=== PATIENT | female | born 1935 | race Caucasian/White ===

== ENCOUNTER 2018-10-17 19:34 | Inpatient (IN) ==
[2018-10-17 20:51] LABS: Baso # (Auto) 0.1 th/mm3 (0.0-0.2); Baso % (Auto) 0.6 % (0.0-2.0); Eos % (Auto) 0.2 % (0.0-4.0); Hematocrit 38.3 % (35.0-46.0); Hemoglobin 12.6 gm/dL (11.6-15.3); Lymph # (Auto) 1.1 th/mm3 (1.0-4.8); Lymph % (Auto) 8.1 % (9.0-44.0); Mean Corpuscular Hemoglobin 26.8 pg (27.0-34.0); Mean Corpuscular Volume 80.9 fL (80.0-100.0); Mean Platelet Volume 8.1 fL (7.0-11.0); Mono # (Auto) 1.2 th/mm3 (0.0-0.9); Neut # (Auto) 10.7 th/mm3 (1.8-7.7); Neut % (Auto) 82.1 % (16.0-70.0); Platelet Count 302 th/mm3 (150-450); Red Blood Count 4.73 mil/mm3 (4.00-5.30); Red Cell Distribution Width 17.8 % (11.6-17.2)
[2018-10-17 21:01] LABS: Prothrombin Time 10.6 sec (9.8-11.6)
[2018-10-17 21:10] LABS: Albumin 4.2 g/dL (3.4-5.0); Anion Gap 10 meq/L (5-15); Aspartate Aminotransferase 47 U/L (15-37); Blood Urea Nitrogen 17 mg/dL (7-18); Calcium 9.8 mg/dL (8.5-10.1); Carbon Dioxide 26.9 meq/L (21.0-32.0); Chloride 99 meq/L (98-107); Glomerular Filtration Rate 45 mL/min (>89); Glucose,Random 181 mg/dL (74-106); Magnesium 1.5 mg/dL (1.5-2.5); Potassium 3.1 meq/L (3.5-5.1); Sodium 136 meq/L (136-145)
[2018-10-17 21:11] LABS: Alanine Aminotransferase 23 U/L (10-53)
[2018-10-17 21:15] LABS: Alkaline Phosphatase 108 U/L (45-117); Total Protein 7.3 g/dL (6.4-8.2)
[2018-10-17] MEDS ORDERED: Aspirin 325 MG Tablet PO ONE ×2 (21:35→21:36)
--- NOTE | 2018-10-17 21:41 | XR ---
EXAM DATE: 10/17/2018 9:10 PM EST AGE/SEX: 83 years / Female INDICATIONS: Chest pain. Shortness of breath. CLINICAL DATA: This is the patient's initial encounter. Patient reports that signs and symptoms have been present for 4 - 6 days and indicates a pain score of 7/10. MEDICAL/SURGICAL HISTORY: Hypertension. Diabetes mellitus type II. Smoker. None. COMPARISON: [facility] – [place], CHEST 1V SINGLE AP, 09/30/2018. [facility], XR CHEST PA AND LAT, 09/25/2016. [facility], XR CHEST PA AND LAT, 06/22/2015. . FINDINGS: Frontal view of the chest demonstrates the lungs to be symmetrically aerated. Faint 11 mm pulmonary n odule in the lateral right upper lung is stable from 2014. Multiple calcified granuloma measuring 5 m m or less are also stable. No focal infiltrates seen. The heart is normal in size. Both hemidiaphragm s well delineated. CONCLUSION: The lungs are clear. No acute findings. Electronically signed by: Chandana Marquez MD Board Certified Radiologist 10/17/2018 9:40 PM EST
--- NOTE | 2018-10-17 22:28 | CT ---
EXAM DATE: 10/17/2018 10:07 PM EST AGE/SEX: 83 years / Female INDICATIONS: Altered mental status. CLINICAL DATA: This is the patient's initial encounter. Patient reports that signs and symptoms have been present for 1 day and indicates a pain score of 0/10. MEDICAL/SURGICAL HISTORY: Hypothyroidism. Gastroesophageal reflux disease. Hypertension. Asthma. . Bladder surgery. RADIATION DOSE: 56.35 CTDI (mGy) COMPARISON: No prior exams available for comparison. TECHNIQUE: CT of the head without contrast. Using automated exposure control and adjustment of the mA and/or kV according to patient size, radiation dose was kept as low as reasonably achievable to ob tain optimal diagnostic quality images. DICOM format image data is available electronically for revi ew and comparison. FINDINGS: Cerebrum: The ventricles, sulci, and basal cisterns are prominent. Symmetric decreased attenuation in the supratentorial white matter characteristic of ischemic demyelination. No evidence of midline s hift, mass lesion, hemorrhage or acute infarction. No extraaxial fluid collections are seen. Posterior Fossa: The cerebellum and brainstem are intact. The 4th ventricle is midline. The cerebe llopontine angle is unremarkable. Extracranial: The visualized portion of the orbits is intact. Skull: The calvaria is intact. No evidence of skull fracture. CONCLUSION: 1. No acute findings in the brain. 2. Moderate ischemic atrophy. . Electronically signed by: Chandana Marquez MD Board Certified Radiologist 10/17/2018 10:26 PM EST
[2018-10-17] MEDS ORDERED: Heparin Drip 25,000 UNIT/250 ML BAG IV.CONT PRN (22:36)
[2018-10-17] MEDS ORDERED: Acetaminophen 325 MG Tablet PO PRN (22:39)
[2018-10-17] MEDS ORDERED: Bisacodyl 10 MG Supp RECTAL PRN (22:39)
--- NOTE | 2018-10-17 22:39 | CT ---
EXAM DATE: 10/17/2018 10:15 PM EST AGE/SEX: 83 years / Female INDICATIONS: Found on floor, abdominal pain. CLINICAL DATA: This is the patient's initial encounter. Patient reports that signs and symptoms have been present for 1 day and indicates a pain score of 5/10. MEDICAL/SURGICAL HISTORY: Gastroesophageal reflux disease. Hypertension. Hypothyroidism. Ast hma. . Bladder surgery. ORAL CONTRAST: No oral contrast ingested. RADIATION DOSE: 6.64 CTDI (mGy) COMPARISON: [facility], CT ABDOMEN AND PELVIS W/ CONTRAST, 12/10/2016. . TECHNIQUE: Multiple contiguous axial images were obtained through the abdomen and pelvis following b olus infusion of 79 ml Omnipaque 350 (iohexol) nonionic water-soluble contrast as a single exam dos e. No oral contrast ingested. Using automated exposure control and adjustment of the mA and/or kV ac cording to patient size, radiation dose was kept as low as reasonably achievable to obtain optimal di agnostic quality images. DICOM format image data is available electronically for review and comparis on. FINDINGS: Lower Lungs: The visualized lower lungs are clear. Liver: The liver has a homogeneous density without space-occupying lesion. There is no dilation of th e biliary tree. No calcified gallstones. Spleen: Homogeneous density without enlargement. Pancreas: Unremarkable without mass or calcification. There is a 3 mm round low density lesion in th e posterior tail, probably representing a cyst, unchanged from prior CT. Kidneys: Normal in size and shape. No evidence of mass or hydronephrosis. Adrenal Glands: Unremarkable. Aorta: The aorta and proximal iliac vessels are grossly unremarkable without aneurysmal dilation. Bowel/Mesentery: The bowel loops are grossly unremarkable. The cecum and sigmoid colon have a normal configuration. Abdominal Wall: Intact. Retroperitoneum: No evidence of adenopathy in the retrocrural, para-aortic, or deep pelvic regions. Bladder: Contours are smooth. Reproductive Organs: No abnormal masses or calcifications seen. Inguinal: The inguinal region is unremarkable without evidence of adenopathy. Bony Structures: Unremarkable. CONCLUSION: 1. No acute findings. Electronically signed by: Chandana Marquez MD Board Certified Radiologist 10/17/2018 10:37 PM EST
[2018-10-17] MEDS ORDERED: Morphine Inj 4 MG/ML Vial IV.PUSH PRN (22:41)
[2018-10-17] MEDS ORDERED: Naloxone Inj 0.4 MG/ML Vial IV.PUSH PRN (22:41)
--- NOTE | 2018-10-17 22:42 | CT ---
EXAM DATE: 10/17/2018 10:12 PM EST AGE/SEX: 83 years / Female INDICATIONS: Found on floor. Neck pain. CLINICAL DATA: This is the patient's initial encounter. Patient reports that signs and symptoms have been present for 1 day and indicates a pain score of 4/10. MEDICAL/SURGICAL HISTORY: Hypertension. Hypothyroidism. Gastroesophageal reflux disease. Ast hma. . Bladder surgery. RADIATION DOSE: 14.97 CTDI (mGy) COMPARISON: No prior exams available for comparison. TECHNIQUE: Contiguous axial images were obtained using helical multirow detector technique. The vol umetric data was post-processed with multiplanar reconstruction in oblique axial, sagittal, and coron al planes. Using automated exposure control and adjustment of the mA and/or kV according to patient s ize, radiation dose was kept as low as reasonably achievable to obtain optimal diagnostic quality sheela ges. DICOM format image data is available electronically for review and comparison. FINDINGS: Diffuse osteopenia. Reversal of the cervical lordosis without spondylolisthesis and with preservation of vertebral body height. Moderate severity discogenic degenerative changes are present C4-T1 with i nterspace narrowing and prominent anterior posterior osteophytes. Posterior elements are in normal al ignment without evidence of locked or perched facets. Moderate severity degenerative changes are pres ent in the facet joints seen one through C4. C2-3: No fracture seen. The neural foramina are patent. C3-4: No fracture seen. The neural foramina are patent. C4-5: No fracture seen. The neural foramina are patent. C5-6: No fracture seen. The neural foramina are patent. C6-7: No fracture seen. The neural foramina are patent. C7-T1: No fracture seen. The neural foramina are patent. CONCLUSION: 1. No evidence of fracture or spondylolisthesis. 2. Multilevel discogenic degenerative changes with associated reversal of the upper cervical lordosi s. Electronically signed by: Chandana Marquez MD Board Certified Radiologist 10/17/2018 10:40 PM EST
--- NOTE | 2018-10-17 22:46 | P.HPIM ---
History of Present Illness Primary Care Physician: No Primary Care Physician History of Present Illness: This is an 83-year-old female with PMH of HTN, Hyperlipidemia, Hypothyroidism and Asthma who was brought to the ER by EMS after being found down by Daughter. Pt unable to provide much history, does not know how she fell or if she had LOC. +Lives alone. No significant complaints at this time. Per Daughter, pt now confused which is not baseline. On arrival, BP 168/79, HR 70, O2 sat 97% on RA, Afebrile. WBC 13. K+ 3.1. Creatinine 1.15, no previous labs for comparison. Troponin [address] Head with no acute findings. CT C-spine negative for fracture. CT Abdomen/Pelvis no acute findings. CXR negative. Currently on Heparin gtt. Diagnosis (1) Syncope: (2) HTN (hypertension): (3) NSTEMI (non-ST elevated myocardial infarction): (4) Encephalopathy: (5) Hypokalemia: (6) JASWANT (acute kidney injury): Review of Systems PAST FAMILY HISTORY: Reviewed. No h/o DM or CAD Review of Systems: all other systems reviewed are negative [facility] Medical History Medical History Asthma (Acute) GERD (gastroesophageal reflux disease) (Acute) High cholesterol (Acute) Hypertension (Acute) Hypothyroid (Acute) Surgical History Surgical History History of bladder surgery (Acute) Social History Social History Substance History: No History of Abuse Second Hand Smoke Exposure: No Smoking Status: Current every day smoker Tobacco Type: Cigarettes How Often Do You Have a Drink Containing Alcohol: Never Recent Out of Country Travel within the Last 8 Weeks: No Immunization History Tetanus Immunization: Unsure Medications and Allergies Allergies Allergy/AdvReac Type Severity Reaction Status Date / Time alendronate sodium Allergy Dizziness Verified 10/17/18 20:15 [From Fosamax] benazepril Allergy Fatigue Verified 10/17/18 20:15 ciprofloxacin [From Cipro] Allergy Dizziness Verified 10/17/18 20:15 Home Medications Medication Instructions Recorded Confirmed Type albuterol sulfate [Ventolin HFA] 2 puff INHALATION Q4-6H PRN 09/30/18 10/17/18 History ascorbic acid (vitamin C) [Vitamin 500 mg PO DAILY 09/30/18 10/17/18 History C] calcium carbonate [Calcium 600] 600 mg PO BID 09/30/18 10/17/18 History cholecalciferol (vitamin D3) 5,000 unit PO DAILY 09/30/18 10/17/18 History [Vitamin D3] cyanocobalamin (vitamin B-12) 500 mcg PO DAILY 09/30/18 10/17/18 History [Vitamin B-12] dorzolamide-timolol 1 drp OPHTHALMIC (EYE) BID 09/30/18 10/17/18 History gabapentin 300 mg PO DAILY 09/30/18 10/17/18 History hydrochlorothiazide 12.5 mg PO DAILY 09/30/18 10/17/18 History levothyroxine 75 mcg PO DAILY 09/30/18 10/17/18 History melatonin 1 mg PO HS PRN 09/30/18 10/17/18 History omeprazole 20 mg PO DAILY 09/30/18 10/17/18 History pravastatin 20 mg PO DAILY 09/30/18 10/17/18 History baclofen 10 mg PO BID 10/17/18 10/17/18 History ranitidine HCl 150 mg PO DAILY 10/17/18 10/17/18 History Active Medications: Active Medications Acetaminophen (Tylenol) 650 mg PO Q4H PRN PRN Reason: Temp > 100.4 Hydrocodone Bitart/Acetaminophen (Bryan 5/325) 1 tab PO Q4H PRN PRN Reason: PAIN SCALE 3 TO 5 Al Hydroxide/Mg Hydroxide (Milk Of Magnesia Liq) 30 ml PO Q12H PRN PRN Reason: Mild Constipation Aspirin (Ecotrin) 81 mg PO DAILY ROBERTO Bisacodyl (Dulcolax Supp) 10 mg RECTAL DAILY PRN PRN Reason: SEVERE CONSITIPATION Heparin Sodium/Dextrose (Heparin/D5w 25,000 U/250 Ml) 25,000 unit in 250 mls @ 0 mls/hr IV.CONT TITRATE PRN; Protocol PRN Reason: Per Protocol Sodium Chloride (Ns Inj) 1,000 mls @ 100 mls/hr IV.CONT .Q10H ROBERTO Lactulose (Lactulose Liq) 30 ml PO DAILY PRN PRN Reason: SEVERE CONSITIPATION Morphine Sulfate (Morphine Inj) 2 mg IV.PUSH Q3H PRN PRN Reason: PAIN 6-10;IF UNABLE TO TAKE PO Naloxone HCl (Narcan Inj) 0.4 mg IV.PUSH UNSCH PRN PRN Reason: SEE LABEL COMMENTS Nitroglycerin (Nitro-Bid 2% Oint) 0.5 inch TOPICAL Q6HR PRN PRN Reason: Chest Pain Ondansetron HCl (Zofran Inj) 4 mg IV.PUSH Q6H PRN PRN Reason: NAUSEA OR VOMITING Pravastatin Sodium (Pravachol) 40 mg PO DAILY ROBERTO Senna/Docusate Sodium (Divya-Colace) 1 tab PO BID ORBERTO Sennosides (Senokot) 17.2 mg PO Q12H PRN PRN Reason: Moderate Constipation Sodium Chloride (Ns Flush) 2 ml IV.FLUSH BID ROBERTO Sodium Chloride (Ns Flush) 2 ml IV.FLUSH PRN PRN PRN Reason: FLUSH AFTER USING IV ACCESS Physical Exam Vital signs: Vital Signs 10/17/18 19:44 10/17/18 20:18 10/17/18 20:33 Temperature 98.5 F Pulse Rate 123 H 117 H Respiratory Rate 16 18 Blood Pressure 126/75 202/86 H Pulse Oximetry 96 100 98 Intake & Output 10/17/18 10/17/18 10/18/18 06:59 18:59 06:59 Weight 52.163 kg Narrative: PE: GENERAL: Pleasant elderly white female in no acute distress. SKIN: Focused skin assessment warm and dry. HEENT: PERRLA, EOMI. No scleral icterus or conjunctival pallor. No lid lag or facial droop. CARDIOVASCULAR: Regular rate and rhythm. No obvious murmurs to auscultation. No chest tenderness to palpation. RESPIRATORY: No obvious rhonchi or wheezing. Clear to auscultation. Breath sounds equal bilaterally. GASTROINTESTINAL: Abdomen soft, non-tender, nondistended. BS normal. MUSCULOSKELETAL: Extremities without clubbing, cyanosis, or edema. No obvious deformities. NEUROLOGICAL: Awake, alert, oriented to person/place. No focal neurologic deficits. Moving both upper and lower extremities spontaneously. PSYCHIATRIC: Appropriate mood and affect. Insight and judgment normal. Results Labs CBC & Chem 7: 10/17/18 20:41 10/17/18 20:41 Imaging Impressions Chest X-Ray 10/17/18 20:29 CONCLUSION: The lungs are clear. No acute findings. Head CT 10/17/18 20:29 CONCLUSION: 1. No acute findings in the brain. 2. Moderate ischemic atrophy. . Abdomen/Pelvis CT 10/17/18 20:39 CONCLUSION: 1. No acute findings. Cervical Spine CT 10/17/18 21:39 CONCLUSION: 1. No evidence of fracture or spondylolisthesis. 2. Multilevel discogenic degenerative changes with associated reversal of the upper cervical lordosis. Caprini VTE Risk Assessment Caprini VTE Risk Assessment: No/Low Risk (score <= 1) Caprini Risk Assessment Model: Point Value = 1 Point Value = 2 Point Value = 3 Point Value = 5 Age 41-60 Minor surgery BMI > 25 kg/m2 Swollen legs Varicose veins or History of unexplained or recurrent spontaneous Oral contraceptives or hormone replacement Sepsis (< 1 month) Serious lung disease, including pneumonia (< 1 month) Abnormal pulmonary function Acute myocardial infarction Congestive heart failure (< 1 month) History of inflammatory bowel disease Medical patient at bed rest Age 61-74 Arthroscopic surgery Major open surgery (> 45 min) Laparoscopic surgery (> 45 min) Malignancy Confined to bed (> 72 hours) Immobilizing plaster cast Central venous access Age >= 75 History of VTE Family history of VTE Factor V Leiden Prothrombin [id number] Lupus anticoagulant Anticardiolipin antibodies Elevated serum homocysteine Heparin-induced thrombocytopenia Other congenital or acquired thrombophilia Stroke (< 1 month) Elective arthroplasty Hip, pelvis, or leg fracture Acute spinal cord injury (< 1 month) Prophylaxis Regimen: Total Risk Factor Score Risk Level Prophylaxis Regimen 0-1 Low Early ambulation 2 Moderate Order ONE of the following: *Sequential Compression Device (SCD) *Heparin 5000 units SQ BID 3-4 Higher Order ONE of the following medications: *Heparin 5000 units SQ TID *Enoxaparin/Lovenox 40 mg SQ daily (WT < 150 kg, CrCl > 30 mL/min) *Enoxaparin/Lovenox 30 mg SQ daily (WT < 150 kg, CrCl > 10-29 mL/min) *Enoxaparin/Lovenox 30 mg SQ BID (WT < 150 kg, CrCl > 30 mL/min) AND/OR *Sequential Compression Device (SCD) 5 or more Highest Order ONE of the following medications: *Heparin 5000 units SQ TID (Preferred with Epidurals) *Enoxaparin/Lovenox 40 mg SQ daily (WT < 150 kg, CrCl > 30 mL/min) *Enoxaparin/Lovenox 30 mg SQ daily (WT < 150 kg, CrCl > 10-29 mL/min) *Enoxaparin/Lovenox 30 mg SQ BID (WT < 150 kg, CrCl > 30 mL/min) AND *Sequential Compression Device (SCD) Assessment and Plan (1) Syncope: Code(s): R55 - Syncope and collapse Status: Acute (2) HTN (hypertension): Code(s): I10 - Essential (primary) hypertension Status: Acute (3) NSTEMI (non-ST elevated myocardial infarction): Code(s): I21.4 - Non-ST elevation (NSTEMI) myocardial infarction Status: Acute (4) Encephalopathy: Code(s): G93.40 - Encephalopathy, unspecified Status: Acute (5) Hypokalemia: Code(s): E87.6 - Hypokalemia Status: Acute (6) JASWANT (acute kidney injury): Code(s): N17.9 - Acute kidney failure, unspecified Status: Acute Plan A/P: 1. Syncope: Presumed, found on ground by Daughter, pt w/ no recollection of events, presumed syncopal event. CT Head/C-Spine w/ no acute findings. Telemetry, check Echo to eval for valvular abnormality/cardiomyopathy. 2. NSTEMI: Trop 0.30, no c/o chest pain, no acute EKG changes, currently on Heparin gtt, continue Heparin, ASA, Statin, check serial cardiac enzymes, Consult Cardiology for further eval/intervention. 3. Encephalopathy: Daughter notes increased confusion, not baseline, BP significantly elevated, possibly Hypertensive Encephalopathy, check U/a to eval for underlying UTI. 4. JASWANT: Creatinine 1.15, no previous labs for comparison, IVF for hydration, check U/a as above, repeat labs in am. 5. HTN: Uncontrolled, BP 200's while in ER, now down to 160's, monitor BP, antihypertensives as needed for BP >180 6. DVT Prophylaxis: Heparin gtt 7. Social work for d/c planning as needed. 8. Case discussed w/ ER physician at length, labs/records/imaging reviewed by me. _ (1) Syncope Qualifiers: Encounter type: Syncope type: unspecified Qualified Code(s): R55 - Syncope and collapse
--- NOTE | 2018-10-17 23:24 | ED ---
HPI General Chief Complaint: Fall Stated Complaint: fall Time Seen by Provider: 10/17/18 20:11 Source: patient and family Mode of arrival: ambulatory Limitations: altered mental status History of Present Illness HPI Narrative: 83 yo female here for evaluation of fall and possible confusion. Per daughter found on the floor today. Unknown how long. Per patient two days but daughter concerned as she appears to be confused which is new for her. Patient lives alone. Only complain is of back pain and left sided abdominal pain on epigastric area. Pain is 8/10. No cardiac history. No CVA history. Patient evaluated here a few weeks ago for fall. Patient able to provide information but does appear to be confused at times and per daughter this is what concerns here. Patient was not able to get off the floor. No reported urine or BM incontinence on scene. No blood thinner use. No leg or arm pain. Denies weakness, tingling or nubmness. Related Data Home Medications Medication Instructions Recorded Confirmed albuterol sulfate [Ventolin HFA] 2 puff INHALATION Q4-6H PRN 09/30/18 10/17/18 ascorbic acid (vitamin C) [Vitamin 500 mg PO DAILY 09/30/18 10/17/18 C] calcium carbonate [Calcium 600] 600 mg PO BID 09/30/18 10/17/18 cholecalciferol (vitamin D3) 5,000 unit PO DAILY 09/30/18 10/17/18 [Vitamin D3] cyanocobalamin (vitamin B-12) 500 mcg PO DAILY 09/30/18 10/17/18 [Vitamin B-12] dorzolamide-timolol 1 drp OPHTHALMIC (EYE) BID 09/30/18 10/17/18 gabapentin 300 mg PO DAILY 09/30/18 10/17/18 hydrochlorothiazide 12.5 mg PO DAILY 09/30/18 10/17/18 levothyroxine 75 mcg PO DAILY 09/30/18 10/17/18 melatonin 1 mg PO HS PRN 09/30/18 10/17/18 omeprazole 20 mg PO DAILY 09/30/18 10/17/18 pravastatin 20 mg PO DAILY 09/30/18 10/17/18 baclofen 10 mg PO BID 10/17/18 10/17/18 ranitidine HCl 150 mg PO DAILY 10/17/18 10/17/18 Allergies Allergy/AdvReac Type Severity Reaction Status Date / Time alendronate sodium Allergy Dizziness Verified 10/17/18 20:15 [From Fosamax] benazepril Allergy Fatigue Verified 10/17/18 20:15 ciprofloxacin [From Cipro] Allergy Dizziness Verified 10/17/18 20:15 Review of Systems ROS: all other systems reviewed are negative [facility] Medical History Medical History Asthma (Acute) GERD (gastroesophageal reflux disease) (Acute) High cholesterol (Acute) Hypertension (Acute) Hypothyroid (Acute) Surgical History Surgical History History of bladder surgery (Acute) Social History Social History Substance History: No History of Abuse Second Hand Smoke Exposure: Yes Smoking Status: Current every day smoker Tobacco Type: Cigarettes How Often Do You Have a Drink Containing Alcohol: Never Recent Out of Country Travel within the Last 8 Weeks: No Immunization History Tetanus Immunization: Unsure Exam Narrative Exam Narrative: GENERAL: Well appearing. Anorexic SKIN: Warm and dry. HEAD: Atraumatic. Normocephalic. EYES: Pupils equal and round. No scleral icterus. No injection or drainage. ENT: No nasal bleeding or discharge. Mucous membranes pink and moist. Tongue is midline. No uvula deviation. NECK: Trachea midline. No JVD. CARDIOVASCULAR: Tachycardic rate and rhythm. RESPIRATORY: No accessory muscle use. Clear to auscultation. Breath sounds equal bilaterally. GASTROINTESTINAL: Abdomen soft, non-tender, nondistended. Hepatic and splenic margins not palpable. MUSCULOSKELETAL: Extremities without clubbing, cyanosis, or edema. No obvious deformities. Full ROM of the upper and lower extremities bilaterally. 2+ pulses. No lumbar, thoracic, cervical spine tenderness to plapation. Reproducible pain in left epigastric area and rib area. NEUROLOGICAL: Awake and alert. No obvious cranial nerve deficits. Motor grossly within normal limits. Five out of 5 muscle strength in the arms and legs. Normal speech. PSYCHIATRIC: Appropriate mood and affect; insight and judgment normal. Course Initial Documented Vital Signs Temperature 98.5 F 10/17/18 19:44 Pulse Rate 123 H 10/17/18 19:44 Respiratory Rate 16 10/17/18 19:44 Blood Pressure 126/75 10/17/18 19:44 Pulse Oximetry 96 10/17/18 19:44 Last Documented Vital Signs Temperature 98.6 F 10/18/18 00:15 Pulse Rate 94 H 10/18/18 02:00 Respiratory Rate 16 10/18/18 00:15 Blood Pressure 159/87 H 10/18/18 00:15 Pulse Oximetry 98 10/18/18 00:15 Medical Decision Making MARION Attestation MARION supervised visit: Yes Attestation: I, Dr. Vasquez, have reviewed the advance practice practitioner's documentation and am in agreement, met with the patient face to face, made the diagnosis, and the medical decision making was done by me. *My assessment and Findings: NSTEMI. FALL 4. MDM Narrative Medical decision making narrative: 83 yo female here for fall and confusion. Labs and imaging ordered. Labs and imaging positive for positive troponin. Aspirin and nitro paste given. Discussed with Dr Vasquez who recommends admission and Heparin drip. Discussed with Dr Mcgregor who agrees to admit. Family and patient understand reasons for admission and need for further management. Medical Screen Exam Complete: Yes Emergency Medical Condition: Yes Differential Diagnosis Differential Diagnosis: CVA vs ACS vs chest pain vs syncope vs head injury Medical Records Medical records reviewed: Yes I reviewed the patient's medical records. Lab Data Lab results reviewed: Yes I reviewed the patient's lab results. Result diagrams: 10/17/18 20:41 10/17/18 20:41 Lab Results 10/17/18 10/17/18 10/17/18 Range/Units 20:41 20:41 20:41 WBC 13.0 H (4.0-11.0) th/mm3 RBC 4.73 (4.00-5.30) mil/mm3 Hgb 12.6 (11.6-15.3) gm/dL Hct 38.3 (35.0-46.0) % MCV 80.9 (80.0-100.0) fL MCH 26.8 L (27.0-34.0) pg MCHC 33.0 (32.0-36.0) % RDW 17.8 H (11.6-17.2) % Plt Count 302 (150-450) th/mm3 MPV 8.1 (7.0-11.0) fL Neut % (Auto) 82.1 H (16.0-70.0) % Lymph % (Auto) 8.1 L (9.0-44.0) % [place] % (Auto) 9.0 H (0.0-8.0) % Eos % (Auto) 0.2 (0.0-4.0) % Baso % (Auto) 0.6 (0.0-2.0) % Neut # (Auto) 10.7 H (1.8-7.7) th/mm3 Lymph # (Auto) 1.1 (1.0-4.8) th/mm3 [place] # (Auto) 1.2 H (0.0-0.9) th/mm3 Eos # (Auto) 0.0 (0.0-0.4) th/mm3 Baso # (Auto) 0.1 (0.0-0.2) th/mm3 WBC Differential . Differential Comment Auto diff final PT 10.6 (9.8-11.6) sec INR 1.0 Ratio APTT (23.4-31.7) sec Sodium (136-145) meq/L Potassium (3.5-5.1) meq/L Chloride (98-107) meq/L Carbon Dioxide (21.0-32.0) meq/L Anion Gap (5-15) meq/L BUN (7-18) mg/dL Creatinine (0.50-1.00) mg/dL Estimated GFR (>89) mL/min Random Glucose (74-106) mg/dL Calcium (8.5-10.1) mg/dL Magnesium (1.5-2.5) mg/dL Total Bilirubin (0.2-1.0) mg/dL AST (15-37) U/L ALT (10-53) U/L Alkaline Phosphatase (45-117) U/L Total Creatine Kinase 1635 H (26-192) U/L CK-MB (CK-2) 25.1 H (0.5-3.6) ng/mL CK-MB (CK-2) % 1.5 (0.0-4.0) % Troponin I (0.02-0.05) ng/mL Total Protein (6.4-8.2) g/dL Albumin (3.4-5.0) g/dL TSH 1.750 (0.358-3.740) uIU/mL 10/17/18 10/17/18 Range/Units 20:41 22:50 WBC (4.0-11.0) th/mm3 RBC (4.00-5.30) mil/mm3 Hgb (11.6-15.3) gm/dL Hct (35.0-46.0) % MCV (80.0-100.0) fL MCH (27.0-34.0) pg MCHC (32.0-36.0) % RDW (11.6-17.2) % Plt Count (150-450) th/mm3 MPV (7.0-11.0) fL Neut % (Auto) (16.0-70.0) % Lymph % (Auto) (9.0-44.0) % [place] % (Auto) (0.0-8.0) % Eos % (Auto) (0.0-4.0) % Baso % (Auto) (0.0-2.0) % Neut # (Auto) (1.8-7.7) th/mm3 Lymph # (Auto) (1.0-4.8) th/mm3 [place] # (Auto) (0.0-0.9) th/mm3 Eos # (Auto) (0.0-0.4) th/mm3 Baso # (Auto) (0.0-0.2) th/mm3 WBC Differential Differential Comment PT 10.8 (9.8-11.6) sec INR 1.1 Ratio APTT 26.4 (23.4-31.7) sec Sodium 136 (136-145) meq/L Potassium 3.1 L (3.5-5.1) meq/L Chloride 99 (98-107) meq/L Carbon Dioxide 26.9 (21.0-32.0) meq/L Anion Gap 10 (5-15) meq/L BUN 17 (7-18) mg/dL Creatinine 1.15 H (0.50-1.00) mg/dL Estimated GFR 45 L (>89) mL/min Random Glucose 181 H (74-106) mg/dL Calcium 9.8 (8.5-10.1) mg/dL Magnesium 1.5 (1.5-2.5) mg/dL Total Bilirubin 1.0 (0.2-1.0) mg/dL AST 47 H (15-37) U/L ALT 23 (10-53) U/L Alkaline Phosphatase 108 (45-117) U/L Total Creatine Kinase (26-192) U/L CK-MB (CK-2) (0.5-3.6) ng/mL CK-MB (CK-2) % (0.0-4.0) % Troponin I 0.30 H (0.02-0.05) ng/mL Total Protein 7.3 (6.4-8.2) g/dL Albumin 4.2 (3.4-5.0) g/dL TSH (0.358-3.740) uIU/mL Imaging Data Attestation: I personally reviewed and interpreted this imaging study as follows : Radiologist's impression: Chest X-Ray 10/17/18 20:29 CONCLUSION: The lungs are clear. No acute findings. Head CT 10/17/18 20:29 CONCLUSION: 1. No acute findings in the brain. 2. Moderate ischemic atrophy. . Abdomen/Pelvis CT 10/17/18 20:39 CONCLUSION: 1. No acute findings. Cervical Spine CT 10/17/18 21:39 CONCLUSION: 1. No evidence of fracture or spondylolisthesis. 2. Multilevel discogenic degenerative changes with associated reversal of the upper cervical lordosis. ECG Data Attestation: I personally reviewed and interpreted this ECG as follows: Interpretation: EKG shows sinus tachycardia but no sign of ST elevation or depression read by my attending and myself. Discharge Plan Discharge Disposition Patient Disposition: ED Admit(ED Internal Use Only) Discharge Order Discharge Orders: ED Use Only Admit Order (Routine); Ordered 10/17/18 Ordered By: Prince Marr Discharge Details Diagnosis: Syncope, Non-ST elevation [place] (NSTEMI) Physicians Team ED Provider: Josué Vasquez ED Midlevel Provider: Prince Marr Primary Care Provider: Primary Care Physici,No Attending Provider: Analilia Mcgregor Other Providers: Fan Rayo ; [employer] Status ED Status: Left Department Discharge Information Discharge Date/Time: 10/18/18 00:24
[2018-10-17] MEDS ORDERED: Metoprolol Inj 5 MG/5 ML Vial IV.PUSH ONE (23:45)
[2018-10-17 23:56] LABS: Activated Partial Thrombo Time 26.4 sec (23.4-31.7); INR 1.1 Ratio; Prothrombin Time 10.8 sec (9.8-11.6)
[2018-10-17] MEDS: Sod Chloride 0.9% Inj 1,000 ML IV.CONT SCH (23:56)
[2018-10-18 01:50] LABS: Thyroid Stimulating Hormone 1.75 uIU/mL (0.358-3.740)
[2018-10-18 02:02] LABS: CKMB Percent 1.5 % (0.0-4.0); Creatine Kinase MB 25.1 ng/mL (0.5-3.6)
--- NOTE | 2018-10-18 06:09 | P.PNIM ---
Subjective Interval history: F/u rhabdomyolysis, HTN and encephalopathy. Complaining of soreness from head to toe. Patient reports she was on the floor for 2 days. History of fall 2 weeks ago and was placed on baclofen which cause dizziness and confusion. Denies chest pain. Seen with daughter who reports that confusion is better Physical Exam Vital signs: Vital Signs 10/17/18 19:44 10/17/18 20:18 10/17/18 20:33 Temperature 98.5 F Pulse Rate 123 H 117 H Respiratory Rate 16 18 Blood Pressure 126/75 202/86 H Pulse Oximetry 96 100 98 10/17/18 23:51 10/18/18 00:15 10/18/18 01:00 Temperature 98.6 F Pulse Rate 110 H 109 H 102 H Respiratory Rate 16 16 Blood Pressure 168/87 H 159/87 H Pulse Oximetry 97 98 10/18/18 02:00 10/18/18 03:00 10/18/18 04:00 Temperature Pulse Rate 94 H 94 H 89 Respiratory Rate 16 Blood Pressure 137/81 Pulse Oximetry 98 Intake & Output 10/17/18 10/17/18 10/18/18 06:59 18:59 06:59 Weight 52.163 kg Narrative: GENERAL: Pleasant elderly white female in no acute distress. SKIN: Focused skin assessment warm and dry. CARDIOVASCULAR: Regular rate and rhythm. No obvious murmurs to auscultation. No chest tenderness to palpation. RESPIRATORY: No obvious rhonchi or wheezing. Clear to auscultation. Breath sounds equal bilaterally. GASTROINTESTINAL: Abdomen soft, non-tender, nondistended. BS normal. MUSCULOSKELETAL: Extremities without clubbing, cyanosis, or edema. No obvious deformities. NEUROLOGICAL: Awake, alert, oriented to person/place. No focal neurologic deficits. Moving both upper and lower extremities spontaneously. PSYCHIATRIC: Appropriate mood and affect. Insight and judgment normal. Results Labs CBC & Chem 7: 10/18/18 08:20 10/18/18 08:20 Imaging Imaging: Impressions Chest X-Ray 10/17/18 20:29 CONCLUSION: The lungs are clear. No acute findings. Head CT 10/17/18 20:29 CONCLUSION: 1. No acute findings in the brain. 2. Moderate ischemic atrophy. . Abdomen/Pelvis CT 10/17/18 20:39 CONCLUSION: 1. No acute findings. Cervical Spine CT 10/17/18 21:39 CONCLUSION: 1. No evidence of fracture or spondylolisthesis. 2. Multilevel discogenic degenerative changes with associated reversal of the upper cervical lordosis. Procedures Procedures: none Assessment and Plan (1) Syncope: Code(s): R55 - Syncope and collapse Status: Acute (2) HTN (hypertension): Code(s): I10 - Essential (primary) hypertension Status: Acute (3) NSTEMI (non-ST elevated myocardial infarction): Code(s): I21.4 - Non-ST elevation (NSTEMI) myocardial infarction Status: Acute (4) Encephalopathy: Code(s): G93.40 - Encephalopathy, unspecified Status: Acute (5) Hypokalemia: Code(s): E87.6 - Hypokalemia Status: Acute (6) JASWANT (acute kidney injury): Code(s): N17.9 - Acute kidney failure, unspecified Status: Acute Plan 1. Syncope: Presumed, found on ground by Daughter, pt w/ no recollection of events, presumed syncopal event. CT Head/C-Spine w/ no acute findings. Telemetry, check Echo to eval for valvular abnormality/cardiomyopathy. 2. NSTEMI type 2: Trop 0.30, no c/o chest pain, no acute EKG changes, continue ASA, Statin and follow-up cardiology consult. Discontinue heparin drip 3. Encephalopathy, multifactorial (uncontrolled hypertension and medication): Daughter notes increased confusion, not baseline, BP significantly elevated, possibly Hypertensive Encephalopathy, check U/a to eval for underlying UTI. Monitor leukocytosis. Discontinue baclofen. Obtain EEG and MRI 4. JASWANT: Creatinine 1.15, no previous labs for comparison, IVF for hydration, check U/a as above, repeat labs in am. 5. HTN: Uncontrolled, BP 200's while in ER, now down to 160's, monitor BP, antihypertensives as needed for BP >180. Improving 6. Rhabdo. Continue IV hydration follow-up pending CPK and monitor renal function. If worse consider stopping statin 7. Hypokalemia and hypophosphatemia. Aggressive replacement. DVT Prophylaxis: SCD and early ambulation Progress Note: Quality VTE Deep Vein Thrombosis/Pulmonary Embolism Present on Admission: No _ (1) Syncope Qualifiers: Encounter type: Syncope type: unspecified Qualified Code(s): R55 - Syncope and collapse
[2018-10-18] MEDS: Levothyroxine 75 MCG Tablet PO SCH (06:39)
[2018-10-18] MEDS: Sod Chloride 0.9% Inj 1,000 ML IV.CONT SCH ×2 (07:52→22:57)
[2018-10-18] MEDS: Senna/Docusate Sodium 8.6/50 MG Tablet PO SCH ×2 (08:00→20:02)
[2018-10-18] MEDS: Pantoprazole Sodium 20 MG DR Tablet PO SCH (08:00)
[2018-10-18 08:43] LABS: Baso # (Auto) 0.1 th/mm3 (0.0-0.2); Baso % (Auto) 0.7 % (0.0-2.0); Eos # (Auto) 0.1 th/mm3 (0.0-0.4); Eos % (Auto) 0.5 % (0.0-4.0); Hematocrit 37.8 % (35.0-46.0); Hemoglobin 12.1 gm/dL (11.6-15.3); Lymph # (Auto) 1.5 th/mm3 (1.0-4.8); Mean Corpuscular HGB Conc 31.9 % (32.0-36.0); Mean Corpuscular Hemoglobin 26.3 pg (27.0-34.0); Mean Corpuscular Volume 82.4 fL (80.0-100.0); Mean Platelet Volume 7.6 fL (7.0-11.0); Mono # (Auto) 1.1 th/mm3 (0.0-0.9); Mono % (Auto) 11.1 % (0.0-8.0); Neut # (Auto) 7.1 th/mm3 (1.8-7.7); Neut % (Auto) 72.7 % (16.0-70.0); Platelet Count 254 th/mm3 (150-450); Red Blood Count 4.59 mil/mm3 (4.00-5.30); Red Cell Distribution Width 17.6 % (11.6-17.2); White Blood Count 9.7 th/mm3 (4.0-11.0)
[2018-10-18] MEDS ORDERED: Dorzolamide-Timolol 2/0.5% Opth Drops 10 ML Bottle EACH EYE SCH (09:00)
[2018-10-18 09:17] LABS: Alanine Aminotransferase 24 U/L (10-53); Albumin 3.7 g/dL (3.4-5.0); Alkaline Phosphatase 99 U/L (45-117); Anion Gap 9 meq/L (5-15); Aspartate Aminotransferase 45 U/L (15-37); Blood Urea Nitrogen 15 mg/dL (7-18); Calcium 8.8 mg/dL (8.5-10.1); Carbon Dioxide 25.4 meq/L (21.0-32.0); Chloride 101 meq/L (98-107); Chol/HDL Ratio 1.83 Ratio; Cholesterol 184 mg/dL (120-200); Glomerular Filtration Rate 72 mL/min (>89); Glucose,Random 103 mg/dL (74-106); HDL Cholesterol 100.1 mg/dL (40.0-60.0); LDL Cholesterol,Calculated 68 mg/dL (0-99); Sodium 135 meq/L (136-145); Total Protein 6.4 g/dL (6.4-8.2); Triglycerides 79 mg/dL (42-150)
[2018-10-18 10:32] LABS: Phosphorus 2.2 mg/dL (2.5-4.9)
[2018-10-18] MEDS: Timolol 0.5% Drops 5 ML Bottle EACH EYE SCH ×2 (11:07→20:02)
[2018-10-18] MEDS: Dorzolamide 2% Opth Drops 10 ML Bottle EACH EYE SCH ×2 (11:10→20:02)
--- NOTE | 2018-10-18 11:22 | ECG ---
Date Performed: 10/17/2018 Time Performed: 20:27:00 PTAGE: 83 years EKG: SINUS TACHYCARDIA WITH OCCASIONAL VENTRICULAR PREMATURE COMPLEXES POSSIBLE RIGHT ATRIAL ENL ARGEMENT LEFT ATRIAL ENLARGEMENT POSSIBLE RIGHT VENTRICULAR CONDUCTION DELAY PROBABLE INFERIOR MYOCAR DIAL INFARCTION ABNORMAL ECG PREVIOUS TRACING : 10/17/2018 20.25 DOCTOR: Elzbieta Vasquez Interpretating Date/Time 10/18/2018 11:18:08
[2018-10-18 12:52] LABS: Magnesium 1.6 mg/dL (1.5-2.5)
--- NOTE | 2018-10-18 13:16 | ECHRPT ---
Indication: CARDIOMYOPATHY CONCLUSIONS Normal left ventricular size. Wall thickness is normal. The left ventricular systolic function is low normal with an estimated ejection fraction in the rang e of 50- 55%. [id number] mitral valve regurgitation. Mild aortic valve regurgitation. The estimated pulmonary arterial pressure is 26 mmHg. . BP: / HR: Rhythm: MEASUREMENTS (Male / Female) Normal Values Technical Quality: 2D ECHO LV Diastolic Diameter PLAX 3.2 cm 4.2 - 5.9 / 3.9 - 5.3 cm LV Systolic Diameter PLAX 2.5 cm IVS Diastolic Thickness 1.0 cm 0.6 - 1.0 / 0.6 - 0.9 cm LVPW Diastolic Thickness 1.1 cm 0.6 - 1.0 / 0.6 - 0.9 cm LV Relative Wall Thickness 0.7 RV Internal Dim ED PLAX 1.8 cm LVOT Diameter 1.7 cm Aortic Root Diameter 2.6 cm M-MODE Aortic Root Diameter MM 3.1 cm LA Systolic Diameter MM 2.1 cm LA Ao Ratio MM 0.7 AV Cusp Separation MM 1.6 cm DOPPLER AV Peak Velocity 208.0 cm/s AV Peak Gradient 17.3 mmHg AI Peak Velocity 209.0 cm/s AI Peak Gradient 17.5 mmHg AI Pressure Half Time 361.0 ms LVOT Peak Velocity 158.0 cm/s LVOT Peak Gradient 10.0 mmHg AV Area Cont Eq pk 1.7 cm Mitral E Point Velocity 68.5 cm/s Mitral A Point Velocity 131.0 cm/s Mitral E to A Ratio 0.5 TR Peak Velocity 200.0 cm/s TR Peak Gradient 16.0 mmHg Right Atrial Pressure 10.0 mmHg Pulmonary Artery Systolic Pressu 26.0 mmHg Right Ventricular Systolic Press 26.0 mmHg PV Peak Velocity 44.4 cm/s PV Peak Gradient 0.8 mmHg FINDINGS LEFT VENTRICLE Normal left ventricular size. Wall thickness is normal. The left ventricular systolic function is low normal with an estimated ejection fraction in the rang e of 50- 55%. Inverted E/A wave ratio at mitral valve leaflets indicative of diastolic dysfunction relaxion type. RIGHT VENTRICLE Normal right ventricular size and systolic function. LEFT ATRIUM The left atrial size is normal. RIGHT ATRIUM The right atrial size is normal. ATRIAL SEPTUM Normal atrial septal thickness without atrial level shunting by limited color doppler interrogation. AORTA The aortic root and proximal ascending aorta are normal in size on limited imaging. MITRAL VALVE [id number] mitral valve regurgitation. AORTIC VALVE Mild aortic valve regurgitation. TRICUSPID VALVE The estimated pulmonary arterial pressure is 26 mmHg. There is trace tricuspid valve regurgitation. PULMONARY VALVE No pulmonary valve regurgitation or stenosis. VESSELS The inferior vena cava is normal in size. PERICARDIUM No pericardial effusion. Fan Rayo MD (Electronically Signed) Final Date:18 October 2018 13:15
[2018-10-18 13:22] LABS: CKMB Percent 1.5 % (0.0-4.0); Creatine Kinase MB 17.7 ng/mL (0.5-3.6)
--- NOTE | 2018-10-18 15:02 | MR ---
EXAM DATE: 10/18/2018 2:41 PM EST AGE/SEX: 83 years / Female INDICATIONS: Hallucinations. Syncope. CLINICAL DATA: This is the patient's initial encounter. Patient reports that signs and symptoms have been present for 2 days and indicates a pain score of 0/10. MEDICAL/SURGICAL HISTORY: Hypertension. None. COMPARISON: [facility] [place], CT HEAD W/O CONTRAST, 10/17/2018. . TECHNIQUE: Multiplanar, multisequence examination of the brain was performed without contrast. FINDINGS: Cerebrum: Symmetric cortical and central atrophy. No evidence of midline shift, mass lesion, hemorr raymond or acute infarction. No extraaxial fluid collections are seen. The pituitary gland and suprase llar cistern are normal in configuration. White Matter: Severe periventricular small vessel ischemic demyelination. Posterior Fossa: The cerebellum and brainstem are intact. The 4th ventricle is midline. The cerebel lopontine angle is unremarkable. The cerebellar tonsils are normal in position. Diffusion Imaging: No focal areas of restricted diffusion are seen. No evidence of acute infarction . Extracranial: The visualized portions of the orbits and paranasal sinuses are unremarkable. CONCLUSION: 1. Chronic changes with symmetric cortical and central atrophy and severe periventricular small vess el ischemic demyelination. 2. Nothing acute. Electronically signed by: Carlos Thompson MD Board Certified Radiologist 10/18/2018 3:01 PM EST
[2018-10-18 18:20] LABS: Bilirubin,Urine Negative (Negative); Clarity,Urine Clear (Clear); Color,Urine Yellow (Yellw/Straw); Glucose,Urine (UA) Negative (Negative); Leukocyte Esterase,Urine Negative (Negative); Mucus,Urine Few /lpf (Occasional); Nitrite,Urine Negative (Negative); Specific Gravity,Urine 1.051 (1.002-1.035)
[2018-10-18] MEDS: Melatonin 5 MG Tablet PO PRN (20:02)
[2018-10-19] MEDS: Levothyroxine 75 MCG Tablet PO SCH (05:40)
--- NOTE | 2018-10-19 07:13 | MB ---
cc: Fan Rayo MD DATE: 10/18/2018 REASON FOR CONSULTATION: Loss of consciousness, increased troponin, and uncompensated high blood pressure. HISTORY OF PRESENT ILLNESS: Mrs. Clement is an 83-year-old female with a history of chronic smoker, high blood pressure, living by herself. She used a cane to move around. She refers she can no longer use the cane because feels so weak. She fell on the floor. She remembered the episode. The daughter went home and found her sitting on the floor. She was brought to the emergency room. Her systolic blood pressure was around 200. I was consulted for further evaluation and management. The chart was reviewed. The patient was evaluated. ALLERGIES: ALENDRONATE, BENAZEPRIL, AND CIPROFLOXACIN. SOCIAL HISTORY: As mentioned before, the patient is still smoking. FAMILY HISTORY: Noncontributory to her current medical condition. CURRENT MEDICATIONS: 1. The patient is on acetaminophen. 2. She is on aspirin 81 mg a day. 3. She is on heparin IV that was discontinued. 4. She is on Levoxyl 75 mcg a day. 5. She is on Zofran p.r.n. 6. Protonix 20 mg a day. 7. Potassium. 8. Pravachol 40 mg a day. 9. Timolol eyedrops. REVIEW OF SYSTEMS: Currently, she is feeling better. No chest pain. No chest discomfort. No fever. PHYSICAL EXAMINATION: GENERAL: Alert, fully oriented. VITAL SIGNS: Blood pressure controlled at 125/80, pulse 89, respiratory rate 18. LUNGS: Ventilated. CARDIOVASCULAR: S1, S2. Regular. No gallop. ABDOMEN: Soft. No mass or bruit. EXTREMITIES: No edema. ELECTROCARDIOGRAM: Sinus rhythm, RVH, right bundle branch block, diffuse ST changes. LABORATORY DATA: Hemoglobin 12.1, white blood cell 9.7. Potassium is 3.0, creatinine is 0.77. Troponin down to 0.36. Total CK is 1635. LDL 68. TSH 1.75. HDL is 100. ASSESSMENT AND RECOMMENDATIONS: Mrs. Clement is currently stable. She has no chest pain, no shortness of breath. There are no acute ST changes on the electrocardiogram. Blood pressure is controlled. Apparently, she was not taking her medication 4 days. She remember being on the floor because she says she felt so weak and cannot move currently with the walker nor with the cane she has at home. The total CK is high. Troponin coming down from 0.53 to 0.36. This may be for skeletal muscle damage. At this point, my recommendation is to continue with current management. The patient should be advised to stop smoking. We will need physical therapy. Also, a 2D echo will be requested to evaluate wall motion and valvular function. I will monitor her during hospitalization. MD CHRISTINE Dawson/di/jesse , 12:58 PM , 01:08 PM
[2018-10-19] MEDS: Senna/Docusate Sodium 8.6/50 MG Tablet PO SCH ×2 (09:31→21:37)
[2018-10-19] MEDS: Pantoprazole Sodium 20 MG DR Tablet PO SCH (09:35)
[2018-10-19] MEDS: Timolol 0.5% Drops 5 ML Bottle EACH EYE SCH ×2 (09:45→21:38)
[2018-10-19] MEDS: Dorzolamide 2% Opth Drops 10 ML Bottle EACH EYE SCH ×2 (09:45→21:38)
--- NOTE | 2018-10-19 12:11 | P.PNIM ---
Subjective Interval history: States that she is still having difficulty ambulating independently and requires a lot of help to get out of bed. She declined going to a [facility] facility wants to go home. She does not recall why she stopped taking her medications. Physical Exam Vital signs: Vital Signs 10/18/18 13:00 10/18/18 13:28 10/18/18 14:32 Temperature Pulse Rate 81 90 75 Respiratory Rate Blood Pressure Pulse Oximetry 10/18/18 15:23 10/18/18 15:59 10/18/18 17:00 Temperature 98.4 F Pulse Rate 81 89 80 Respiratory Rate 20 Blood Pressure 123/74 Pulse Oximetry 99 10/18/18 18:00 10/18/18 19:00 10/18/18 20:00 Temperature 98.7 F Pulse Rate 87 83 80 Respiratory Rate 17 Blood Pressure 139/74 Pulse Oximetry 96 10/18/18 21:00 10/18/18 22:00 10/18/18 22:55 Temperature Pulse Rate 71 71 Respiratory Rate 17 Blood Pressure Pulse Oximetry 10/18/18 23:00 10/19/18 00:00 10/19/18 01:00 Temperature 97.9 F Pulse Rate 69 70 69 Respiratory Rate 18 Blood Pressure 116/63 Pulse Oximetry 96 10/19/18 02:00 10/19/18 03:00 10/19/18 04:00 Temperature 98.1 F Pulse Rate 69 67 70 Respiratory Rate 17 Blood Pressure 116/63 Pulse Oximetry 96 10/19/18 05:00 10/19/18 06:00 10/19/18 09:21 Temperature 98 F Pulse Rate 67 77 84 Respiratory Rate 18 Blood Pressure 157/77 H Pulse Oximetry 95 Intake & Output 10/18/18 10/19/18 10/19/18 18:59 06:59 18:59 Intake Total 1050 / 1050 250 / 250 Output Total 700 / 700 275 / 275 Balance 350 / 350 -25 / -25 Weight 51.7 kg Intake: IV 250 / 250 Heparin/D5W 25,000 U/250 mL 25, 250 / 250 000 unit In 250 ml @ Per Protocol IV.CONT TITRATE PRN Rx #:[id number] Oral 1050 / 1050 Output: Urine 700 / 700 Urine Amount (Catheter) 275 / 275 Straight 275 / 275 Narrative: GENERAL: Pleasant elderly white female in no acute distress laying in bed. CARDIOVASCULAR: Regular rate and rhythm. No obvious murmurs to auscultation. No chest tenderness to palpation. RESPIRATORY: No obvious rhonchi or wheezing. Clear to auscultation. Breath sounds equal bilaterally. GASTROINTESTINAL: Abdomen soft, non-tender, nondistended. BS normal. MUSCULOSKELETAL: Extremities without clubbing, cyanosis, or edema. NEUROLOGICAL: Awake, alert, oriented to person/place, knew the time but not complete to situation. No focal neurologic deficits. Moving both upper and lower extremities spontaneously. Urinary Catheter Management Straight: Cath placed during this visit: yes, but has since been removed by the nurse Reason for continuing: Not indwelling catheter Insertion date: 10/19/18 Insertion time: 06:20 Removal date: 10/19/18 Removal time: 06:33 Results Labs CBC & Chem 7: 10/18/18 08:20 10/18/18 08:20 Imaging Imaging: Impressions Head MRI 10/18/18 00:00 CONCLUSION: 1. Chronic changes with symmetric cortical and central atrophy and severe periventricular small vessel ischemic demyelination. 2. Nothing acute. Procedures Procedures: none Assessment and Plan (1) Syncope: Code(s): R55 - Syncope and collapse Status: Acute (2) HTN (hypertension): Code(s): I10 - Essential (primary) hypertension Status: Chronic (3) NSTEMI (non-ST elevated myocardial infarction): Code(s): I21.4 - Non-ST elevation (NSTEMI) myocardial infarction Status: Acute (4) Encephalopathy: Code(s): G93.40 - Encephalopathy, unspecified Status: Resolved (5) Hypokalemia: Code(s): E87.6 - Hypokalemia Status: Acute (6) JASWANT (acute kidney injury): Code(s): N17.9 - Acute kidney failure, unspecified Status: Acute (7) Hypertensive encephalopathy: Code(s): I67.4 - Hypertensive encephalopathy Status: Acute Plan 83-year-old white female with a history of hypertension, hyperlipidemia, hypothyroidism, asthma was brought to the emergency room via EMS after daughter found her on the ground with altered mental status. Suspect hypertensive encephalopathy with a history of noncompliance with medicationsblood pressure much better improved ; start lisinopril and continue to monitor blood pressure closely Neurochecks has been stable. MRI of the brain showed no acute findings. Check toxic urine screen Elevated troponin I likely due to uncontrolled blood pressure with no complaint of chest pains no acute EKG changesstatus post cardiology evaluation, 2D echo revealed normal ejection fraction Acute kidney injury superimposed on chronic kidney disease stage IIimproved with IV hydration Mild rhabdostatus post IV fluid hydration, CPK has trended down. Syncope, presumed found on the ground by daughter patient with no recollection of eventsCT brain and spine with negative findings. Telemetry revealed continued normal sinus rhythm Hypokalemiareplete and repeat a mag level, hold HCTZ Continue physical therapy, patient is refusing [facility] facility. Progress Note: Quality VTE Deep Vein Thrombosis/Pulmonary Embolism Present on Admission: No _ (1) Syncope Qualifiers: Encounter type: Syncope type: unspecified Qualified Code(s): R55 - Syncope and collapse
--- NOTE | 2018-10-19 12:21 | P.DCO ---
Diagnosis (1) Hypertensive encephalopathy: Status: Acute Physical Therapy Order: Evaluate and treat Home Health Nursing Order: Nursing assessment with vital signs Case Management Consult Case Management Consult-Home Health: Yes I have seen patient Shweta Clement on 10/19/18. My clinical findings support the need for the requested home health care services because: High risk of falls I certify that my clinical findings support that this patient is homebound because: Unsteady gait/balance
[2018-10-19] MEDS: amLODIPine 5 MG Tablet PO SCH (13:44)
[2018-10-19 13:53] LABS: Hematocrit 35.2 % (35.0-46.0); Hemoglobin 11.4 gm/dL (11.6-15.3); Mean Corpuscular HGB Conc 32.3 % (32.0-36.0); Mean Corpuscular Volume 83.6 fL (80.0-100.0); Mean Platelet Volume 7.9 fL (7.0-11.0); Platelet Count 239 th/mm3 (150-450); Red Cell Distribution Width 17.9 % (11.6-17.2); White Blood Count 6.4 th/mm3 (4.0-11.0)
[2018-10-19 14:06] LABS: Magnesium 1.6 mg/dL (1.5-2.5); Potassium 4.2 meq/L (3.5-5.1)
[2018-10-19 14:08] LABS: Calcium 8.4 mg/dL (8.5-10.1); Carbon Dioxide 24.2 meq/L (21.0-32.0); Magnesium 1.7 mg/dL (1.5-2.5); Potassium 4.1 meq/L (3.5-5.1)
[2018-10-19 14:27] LABS: CKMB Percent 1.7 % (0.0-4.0); Creatine Kinase MB 8.5 ng/mL (0.5-3.6)
[2018-10-19 19:19] LABS: Amphetamine Screen,Urine Neg (Neg); Barbiturate Screen,Urine Neg (Neg); Cannabinoid Screen,Urine Neg (Neg); Cocaine Screen,Urine Neg (Neg)
--- NOTE | 2018-10-19 19:22 | MG ---
cc: Markus Gonzalez MD, PhD TEST NUMBER: [id number]. TECHNIQUE: A 17-channel EEG. DESCRIPTION: Background activity showed symmetrical alpha activity, frequency 10 Hz, amplitude 10-20 microvolts. No lateralizing features are identified. No epileptiform features are seen. The patient does become drowsy with a slowing in the theta range. Photic is normal. INTERPRETATION: Normal electroencephalogram. Markus Gonzalez MD, PhD PATRICE/salvador , 06:36 PM , 06:40 PM
[2018-10-19 19:26] LABS: Opiate Screen,Urine Neg (Neg)
[2018-10-19] MEDS: Melatonin 5 MG Tablet PO PRN (21:52)
[2018-10-20] MEDS: Sod Chloride 0.9% Inj 1,000 ML IV.CONT SCH (04:38)
[2018-10-20] MEDS: Levothyroxine 75 MCG Tablet PO SCH (06:11)
[2018-10-20 07:22] LABS: Hematocrit 32.7 % (35.0-46.0); Hemoglobin 10.7 gm/dL (11.6-15.3); Mean Corpuscular HGB Conc 32.6 % (32.0-36.0); Mean Corpuscular Volume 82.6 fL (80.0-100.0); Mean Platelet Volume 8.3 fL (7.0-11.0); Platelet Count 224 th/mm3 (150-450); Red Blood Count 3.96 mil/mm3 (4.00-5.30); Red Cell Distribution Width 17.8 % (11.6-17.2)
[2018-10-20 07:48] LABS: Calcium 8.5 mg/dL (8.5-10.1); Potassium 3.9 meq/L (3.5-5.1)
[2018-10-20] MEDS: Pantoprazole Sodium 20 MG DR Tablet PO SCH (08:39)
[2018-10-20] MEDS: Senna/Docusate Sodium 8.6/50 MG Tablet PO SCH (08:39)
[2018-10-20] MEDS: amLODIPine 5 MG Tablet PO SCH (08:39)
[2018-10-20] MEDS: Timolol 0.5% Drops 5 ML Bottle EACH EYE SCH (08:40)
[2018-10-20] MEDS: Dorzolamide 2% Opth Drops 10 ML Bottle EACH EYE SCH (08:40)
[2018-10-20 09:37] VITALS: PULSE 73
[2018-10-20 09:42] VITALS: BP 144/76; RESP 18; TEMP 98.4; O2SAT 94
--- NOTE | 2018-10-20 10:00 | P.DS ---
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 Pt unable to provide much history, does not know how she fell or if she had LOC. +Lives alone. No significant complaints at this time. Per Daughter, pt now confused which is not baseline. On arrival, BP 168/79, HR 70, O2 sat 97% on RA, Afebrile. WBC 13. K+ 3.1. Creatinine 1.15, no previous labs for comparison. Troponin [address] Head with no acute findings. CT C-spine negative for fracture. CT Abdomen/Pelvis no acute findings. CXR negative. Currently on Heparin gtt. Patient update on day of discharge: Patient reports she is feeling stronger. Wants to go home today. Has declined to go to a alf facility and states that her daughter will help her. DS: Diagnosis Discharge Diagnosis (1) Hypertensive encephalopathy: Status: Acute Diagnosis: Principal (2) Rhabdomyolysis: Status: Resolved Diagnosis: Principal (3) JASWANT (acute kidney injury): Status: Resolved Diagnosis: Secondary DS: Summary 83-year-old white female with a history of hypertension, hyperlipidemia, hypothyroidism, asthma was brought to the emergency room via EMS after daughter found her on the ground with altered mental status. Patient was found to have elevated blood pressure of systolic less than 200 on presentation and it was suspected that patient status was due to hypertensive encephalopathy with a history of noncompliance with her medications. Her mental status did improve with improvement of her blood pressure. MRI of the brain showed no acute changes. EEG performed showed no acute seizures. She was started on Norvasc. Her mild elevation in troponin I likely was due to uncontrolled blood pressure with no complaint of chest pain and no acute EKG changes. She also presented with mild rhabdomyolysis with acute kidney injury that was resolved with IV fluid hydration. She had a physical therapy evaluation and was recommended to go to a alf facility for continued rehab however patient declined. At this time she will be transitioned home with her daughter with home health care. Time Spent with Patient Total time spent providing and/or coordinating discharge services: Quality: VTE Deep Vein Thrombosis/Pulmonary Embolism Present on Admission: No Exam Narrative Exam Narrative: Well-nourished well-developed elderly female in no acute distress laying in bed Cardiovascular regular rate and rhythm Lungs few expiratory wheeze bilaterally Abdomen soft nontender nondistended Extremities no cyanosis clubbing or edema Neuro alert and oriented to person place and time does move all 4 extremities Results Procedures completed during hospitalization: none Labs on day of discharge: Labs from last 24 hours 10/20/18 10/20/18 10/19/18 05:31 05:31 Unknown WBC 5.0 RBC 3.96 L Hgb 10.7 L Hct 32.7 L MCV 82.6 MCH 27.0 MCHC 32.6 RDW 17.8 H Plt Count 224 MPV 8.3 Sodium 139 Potassium 3.9 Chloride 107 Carbon Dioxide 23.0 Anion Gap 9 BUN 8 Creatinine 0.67 Estimated GFR 84 L Random Glucose 81 Calcium 8.5 Magnesium Total Creatine Kinase CK-MB (CK-2) CK-MB (CK-2) % Urine Opiates Screen Neg Ur Barbiturates Screen Neg Ur Amphetamines Screen Neg U Benzodiazepines Scrn Neg Urine Cocaine Screen Neg U Cannabinoids Screen Neg 10/19/18 10/19/18 10/19/18 13:26 13:26 13:26 WBC 6.4 RBC 4.20 Hgb 11.4 L Hct 35.2 MCV 83.6 MCH 27.0 MCHC 32.3 RDW 17.9 H Plt Count 239 MPV 7.9 Sodium 137 Potassium 4.2 4.1 D Chloride 107 Carbon Dioxide 24.2 Anion Gap 6 BUN 11 Creatinine 0.72 Estimated GFR 78 L Random Glucose 115 H Calcium 8.4 L Magnesium 1.6 1.7 Total Creatine Kinase 487 H CK-MB (CK-2) 8.5 H CK-MB (CK-2) % 1.7 Urine Opiates Screen Ur Barbiturates Screen Ur Amphetamines Screen U Benzodiazepines Scrn Urine Cocaine Screen U Cannabinoids Screen Impressions ITS Impressions Chest X-Ray 10/17/18 20:29 CONCLUSION: The lungs are clear. No acute findings. Head CT 10/17/18 20:29 CONCLUSION: 1. No acute findings in the brain. 2. Moderate ischemic atrophy. . Abdomen/Pelvis CT 10/17/18 20:39 CONCLUSION: 1. No acute findings. Cervical Spine CT 10/17/18 21:39 CONCLUSION: 1. No evidence of fracture or spondylolisthesis. 2. Multilevel discogenic degenerative changes with associated reversal of the upper cervical lordosis. Head MRI 10/18/18 00:00 CONCLUSION: 1. Chronic changes with symmetric cortical and central atrophy and severe periventricular small vessel ischemic demyelination. 2. Nothing acute. Discharge Plan Discharge Disposition Patient Disposition: /Home Health Service Discharge Condition Condition: Good Discharge Order Discharge Orders: Discharge Order (Routine); Ordered 10/20/18 Ordered By: Mulu Pettit Physicians Team Primary Care Provider: Primary Care Anne Gale Attending Provider: Mulu Pettit Other Providers: Fan Rayo ; HumannaifHumannaif Rxs /Orders / Referrals /Forms Prescriptions: New amlodipine [Norvasc] 5 mg Tablet 5 mg PO DAILY Qty: 30 RF: 0 Continue ascorbic acid (vitamin C) [Vitamin C] 500 mg Capsule, Extended Release 500 mg PO DAILY RF: 0 melatonin 1 mg Tablet 1 mg PO HS PRN (Reason: Insomnia) RF: 0 cyanocobalamin (vitamin B-12) [Vitamin B-12] 500 mcg Tablet 500 mcg PO DAILY RF: 0 dorzolamide-timolol 22.3-6.8 mg/mL Drops 1 drp OPHTHALMIC (EYE) BID RF: 0 pravastatin 20 mg Tablet 20 mg PO DAILY RF: 0 levothyroxine 75 mcg Tablet 75 mcg PO DAILY RF: 0 calcium carbonate [Calcium 600] 600 mg calcium (1,500 mg) Tablet 600 mg PO BID RF: 0 gabapentin 300 mg Capsule 300 mg PO DAILY RF: 0 omeprazole 20 mg Capsule,Delayed Release(Dr/Ec) 20 mg PO DAILY RF: 0 albuterol sulfate [Ventolin HFA] 90 mcg/actuation Hfa Aerosol Inhaler 2 puff INHALATION Q4-6H PRN (Reason: SOB) RF: 0 cholecalciferol (vitamin D3) [Vitamin D3] 5,000 unit Tablet 5,000 unit PO DAILY RF: 0 Discontinued hydrochlorothiazide 12.5 mg Capsule 12.5 mg PO DAILY RF: 0 baclofen 10 mg Tablet 10 mg PO BID RF: 0 ranitidine HCl 150 mg Tablet 150 mg PO DAILY RF: 0 Referrals: [facility] [Outside] - See Instructions Primary Care Provider [Outside] - See Instructions ( Please [employer] Primary care physician's office to book the appointment to be seen within 1 week.) Primary Care MohseniAnne [Primary Care Provider] - See Instructions Discharge Instructions Patient Printed Instructions: Heart Attack (DC), Heart Healthy Diet (DC), Syncope (DC), Exercise Safety (GEN) Post Discharge Care Plan Care Plan Goals: Your Health Problems: hypertension, rhabdomyolysis Goals to Promote Your Health: * To prevent worsening of your condition * To maintain your health at the optimal level Directions to Meet Your Goals: * Take your medications as prescribed * Follow your dietary instruction * Follow activity as directed * Keep your appointments as scheduled * Take your immunizations and boosters as scheduled * If your symptoms worsen call your PCP * If no PCP go to Urgent Care or Emergency Room Smoking is dangerous to your health. Avoid second hand smoke. You may reach the 24-hour crisis hotline for domestic abuse at . Status ED Status: Left Department
== END 2018-10-20 11:48 | disposition home health service (06) | DRG 78 ==
LOC: NEPC 19:34 → NEDA 22:37 → HCIS 10-18 00:41
PROVIDERS: ADMIT Family Medicine; ATTEND Family Medicine
DX: Z91.14 Patient's other noncompliance with medication regimen; M62.82 Rhabdomyolysis; N17.9 Acute kidney failure, unspecified; I12.9 Hypertensive chronic kidney disease with stage 1 through stage 4 chronic kidney disease, or unspecified chronic kidney disease; I67.4 Hypertensive encephalopathy; E03.9 Hypothyroidism, unspecified; E78.00 Pure hypercholesterolemia, unspecified; J45.909 Unspecified asthma, uncomplicated; E83.39 Other disorders of phosphorus metabolism; K21.9 Gastro-esophageal reflux disease without esophagitis; N18.2 Chronic kidney disease, stage 2 (mild); E87.6 Hypokalemia; R55 Syncope and collapse; F17.210 Nicotine dependence, cigarettes, uncomplicated
CPT/HCPCS: 70450; 70551; 71010; 71045; 72125; 74177; 80048; 80053; 80061; 80307; 81001; 82550; 82552; 83735; 84100; 84132; 84443; 84484; 85025; 85027; 85610; 85730; 93005; 93306; 95819; 97110; 97116; 97163; 99285; J1644; J7030; Q9967